=== PATIENT | female | born 1995 | race Caucasian/White ===

== ENCOUNTER → 2022-11-15 15:14 | Outpatient (CLI) | payer OTHER, SELFPAY ==
--- NOTE | ~2022-11-15 | US_ITS ---
EXAMINATION: US OB /maternal detail DATE: 11/15/2022 15:53 INDICATION: Second trimester anatomy scan TECHNIQUE: Multiple obstetric sonographic images performed. FINDINGS: There is a single living fetus in vertex presentation. The placenta is anterior and not low-lying wi th caudal margin 6.1 cm from the region of the internal cervical os. The cervix itself is poorly visu alized. Amniotic fluid volume is subjectively normal. heart rate of 145 beats per minute. The following anatomy was identified as normal: Ventricles, choroid plexus, falx and cava septum pellucidum Cerebellum and cisterna magna Nuchal fold Upper lip Spine Diaphragm Stomach Kidneys Bladder 3 vessel cord and cord insertion Bilateral upper and lower extremities including hands and feet The four-chamber heart view is normal. Left and right ventricular outflow tract views were not provid ed however cine imaging extending from the aortic arch to the base of the heart demonstrates normal a natomy of the great vessels. The following biometric data were obtained: BPD: 4.2 cm -> 18 weeks 4 days Head circumference: 16.0 cm -> 18 weeks 6 days Abdominal circumference: 12.9 cm -> 18 weeks 3 days Femur length: 2.7 cm -> 18 weeks 3 days These measurements are 2. Head circumference to abdominal circumference ratio: 1.24 (normal range 1.09-1.27). Estimated weight: 241 g (+/-) 36 g. or 8 oz. (+/-) 1 oz. IMPRESSION: 1. Single living fetus with vertex presentation with heart rate of 145 bpm. 2. Gestational age by ultrasound of 18 weeks 4 day(s) (+/-) 1 week 2 day(s) with ultrasound estimat ed date of delivery (JUAN) of 04/14/2023. Estimated weight is 38th percentile by Hadlock criteri a when 04/14/2023 is used as the JUAN. Please correlate with clinical information or earlier ultrasoun ds for most accurate JUAN. 3. Normal survey. Reviewed, dictated and finalized at location A. IMPRESSION: 1. Single living fetus with vertex presentation with heart rate of 145 b pm. 2. Gestational age by ultrasound of 18 weeks 4 day(s) (+/-) 1 week 2 day(s) w ith ultrasound estimated date of delivery (JUAN) of 04/14/2023. Estimated weight is 38th percentile by Hadlock criteria when 04/14/2023 is used as the ED D. Please correlate with clinical information or earlier ultrasounds for most a ccurate JUAN. 3. Normal survey.
== END ==
PROVIDERS: PCP Advanced Practice Midwife; Visit Provider Advanced Practice Midwife
DX: Z36.9 Encounter for antenatal screening, unspecified (principal); Z3A.18 18 weeks gestation of pregnancy
CPT/HCPCS: 76805

== ENCOUNTER → 2023-03-05 16:35 | Outpatient (CLI) | payer OTHER, SELFPAY ==
--- NOTE | ~2023-03-05 | US_ITS ---
EXAMINATION: US OB follow up DATE: 03/05/2023 16:57 INDICATION: Estimated size less than expected for estimated gestational age TECHNIQUE: Real-time ultrasound of the pelvis was performed. The interpreting radiologist was not pre sent for the study. COMPARISON: 11/23/2022 FINDINGS: There is a single living fetus in vertex presentation. The placenta is anterior. heart rate is 140 beats per minute (bpm). The amniotic fluid index is 17.1 cm, which is normal. The following biometric data were obtained: BPD: 8.6 cm -> 34 weeks 3 days Head circumference: 30.3 cm -> 33 weeks 4 days Abdominal circumference: 28.1 cm -> 32 weeks 1 days Femur length: 6.6 cm -> 33 weeks 6 days These measurements are concordant. Head circumference to abdominal circumference ratio: 1.08 (normal range 0.95-1.11). Estimated weight: 2097 g (+/-) 315 g or 4 lbs. 10 oz. (+/-) 11 oz. IMPRESSION: 1. Single living fetus in vertex presentation with heart rate of 140 bpm. 2. Normal amniotic fluid index of 17.1 cm. 3. Estimated weight is 14th percentile by Hadlock criteria when 04/14/2023 is used as the estim ated date of delivery (JUAN). Please correlate with clinical information or earlier ultrasounds for mo st accurate JUAN. Reviewed, dictated and finalized at location A. IMPRESSION: 1. Single living fetus in vertex presentation with heart rate of 140 bpm. 2. Normal amniotic fluid index of 17.1 cm. 3. Estimated weight is 14th percentile by Hadlock criteria when 3 is used as the estimated date of delivery (JUAN). Please correlate with clinic al information or earlier ultrasounds for most accurate JUAN.
== END ==
PROVIDERS: PCP Advanced Practice Midwife; Visit Provider Advanced Practice Midwife
DX: O36.5930 Maternal care for other known or suspected poor fetal growth, third trimester, not applicable or unspecified (principal); Z3A.00 Weeks of gestation of pregnancy not specified
CPT/HCPCS: 76816

== ENCOUNTER 2023-04-09 03:55 | Inpatient (IN) | payer OTHER, SELFPAY ==
[2023-04-09] VITALS (80 sets, daily range): BP systolic 80–213; BP diastolic 46–178; PULSE 61–105; RESP 16; TEMP 36.5–37.1; O2SAT 84–100; BMI 25.3
[2023-04-09] MEDS: LACTATED RINGERS 1,000 ML 125 ML IV CONT ×2 (04:25→05:03)
[2023-04-09] MEDS: AMPICILLIN 2 GM/NS 100 ML 2 GM/100 ML BAG IVPB (04:25)
[2023-04-09 04:27] LABS: Basophils Absolute Auto 0.1 K/mm3 (0.0-0.1); Basophils Percent Auto 0.4 % (0.2-1.2); Eosinophils Absolute Auto 0.2 K/mm3 (0-0.3); Hemoglobin 11.2 g/dL (12.0-15.0); Immature Granulocyte Absolute 0.25 K/mm3 (0.00-0.031); Immature Granulocyte Percent A 1.6 % (0-0.5); Lymphocytes Absolute Auto 1.95 K/mm3 (0.9-3.2); Lymphocytes Percent Auto 12.1 % (18.3-44.2); Mean Corpuscular Hemoglobin 28.8 pg (26-34); Mean Platelet Volume 10.8 fl (7.4-10.4); Monocytes Absolute Auto 1.5 K/mm3 (0.1-0.6); Monocytes Percent Auto 9.3 % (2.6-8.5); Neutrophils Absolute Auto 12.2 K/mm3 (1.3-6.7); Neutrophils Percent Auto 75.6 % (45.5-73.1); Platelet Count Result 261 k/mm3 (150-375); Red Blood Count 3.89 M/mm3 (4.2-5.4); Red Cell Distribution Width 13.2 % (11.5-14.5); White Blood Count 16.1 K/mm3 (4.5-10.0)
--- NOTE | 2023-04-09 04:55 | P.PNAN_ITS ---
Anes - Eval Pre Procedure Procedure: labor epidural Date/Time: 04/09/23 04:55 Surgeon: yan Preop Diagnosis: pain during labor Pre Op Diagnosis: LABOR Patient Data Age: 28 Gender: F Height: 1.7 m Weight: 73.5 kg Last Vital Signs Pulse 82 04/09/23 04:53 BP 101/52 L 04/09/23 04:53 Pulse Ox 99 04/09/23 04:50 O2 Del Method Room Air 04/09/23 04:54 Allergies Allergy/AdvReac Type Severity Reaction Status Date / Time No Known Allergies Allergy Verified 03/21/23 13:13 Home Medications Medication Instructions Recorded Confirmed Type vits no.126-ferrous fum 1 tablet PO DAILY 03/21/23 03/21/23 History 28 mg iron-folic acid 800 mcg tablet (Classic ) Laboratory Tests 04/09/23 04:17 WBC 16.1 H K/mm3 (4.5-10.0) RBC 3.89 L M/mm3 (4.2-5.4) Hgb 11.2 L g/dL (12.0-15.0) Hct 35.0 L % (37.0-47.0) MCV 90.0 fl (80-100) MCH 28.8 pg (26-34) MCHC 32.0 g/dl (32-36) RDW 13.2 % (11.5-14.5) Plt Count 261 k/mm3 (150-375) MPV 10.8 H fl (7.4-10.4) Immature Gran % (Auto) 1.6 H % (0-0.5) Neut % (Auto) 75.6 H % (45.5-73.1) Lymph % (Auto) 12.1 L % (18.3-44.2) [place] % (Auto) 9.3 H % (2.6-8.5) Eos % (Auto) 1.0 % (0-4.4) Baso % (Auto) 0.4 % (0.2-1.2) Lymph # (Auto) 1.95 K/mm3 (0.9-3.2) [place] # (Auto) 1.5 H K/mm3 (0.1-0.6) Eos # (Auto) 0.2 K/mm3 (0-0.3) Baso # (Auto) 0.1 K/mm3 (0.0-0.1) Abs Immat Gran (auto) 0.25 H K/mm3 (0.00-0.031) Absolute Neuts (auto) 12.2 H K/mm3 (1.3-6.7) Absolute Nucleated RBC 0.0 K/mm3 (0.0-0.012) Nucleated RBC % 0.0 % (0.0-0.2) RPR Pending Patient hx anesthesia problems: none Family hx anesthesia problems: none Results Review: All pre-operative results and documents have been reviewed as part of the pre- operative evaluation. [facility] Past Medical History Medical History (Updated 04/09/23 @ 04:56 by Laura Mcdowell CRNA) Normal IUP (intrauterine ) on ultrasound Family History Family History (Updated 03/21/23 @ 13:44 by Maura Shafer RN) Grandparent Hypertension Social History Social History Smoking status: Never smoker Second hand tobacco smoke exposure: No Substance use: never Lack of Transportation: No Lack of Food: Never True Current Housing: I Have Housing Concerned About Future Housing: No Difficulty Paying Gas/Electric Bills: No Difficulty Paying for Meds: No Currently Unemployed: No Education: Bachelor's Degree Difficulty w/ Childcare or Family Care: No Spiritual care concerns: No Exam Day of Procedure 04/09/23 04:55
--- NOTE | 2023-04-09 07:28 | WPDOBADMIT ---
Obstetrics - Admit Note Admission Note: record reviewed. No pertinent additions to the history and/or any subsequent changes in the physical findings that are not consistent with the expected course of the were found. Additions to the history and/or subsequent changes in the physical findings follow. Admitted in spontaneous labor with clear ROM.
--- NOTE | 2023-04-09 07:29 | PM.OBPNLAB ---
Pain Control Date/time seen: 04/09/23 07:25 Pain control: tolerating well and epidural Comments: Feeling pelvic pressure. Pelvic Exam Dilation (cm): 10 Comments: per RN exam Contractions Monitor mode: External Contraction pattern: Regular Contraction intensity: Strong/Firm Status Comments: Moderate variability, baseline 150 to 155 a times. Early decelerations Assessment and Plan Assessment: active labor Plan: continuous present management Comments: Pt feeling pelvic pressure. Will begin pushing with contractions.
--- NOTE | 2023-04-09 07:33 | PM.OBPRVD ---
OB - Delivery Note Procedure Delivery date: 04/09/23 Procedure: Events: Positive Group B Strep (GBS) Induction method: None Delivery monitor: External FHT and External Uterine Route of delivery: Episiotomy description: None Laceration Description: Vaginal (1st) and Superficial (periurethral bilateral-no repair. ) Delivery repair: vicryl Specimen: No Quantitative Blood Loss (ml): 75 Anesthesia type: Epidural Disposition: Floor Complications: Shoulder Dystocia x 65 seconds Narrative: Patient arrived in spontaneous labor after spontaneous rupture membranes that were clear. She progressed quickly to complete dilation and pushed well with contractions. She brought the head to compare crown. After the delivery of the head there was a lack of restitution observed. With the next push there was no further descent of the anterior shoulder. A shoulder dystocia was identified. Rosetta position was initiated and there was no further descent of the anterior arm. Suprapubic pressure was applied towards the maternal left hip and there was minimal descent of the anterior shoulder. After 30 seconds, CNM placed a hand posteriorly and easily removed the hand and arm. This was identified as the interior ( left) arm. with the next push she delivered the posterior ( right) arm. the remainder of the was delivered and placed on the maternal abdomen for assessment by the pediatric team. After 1 minute of life the cord was doubly clamped and cut. Cord blood, cord gases, and cord gases were obtained. there is spontaneous delivery of the placenta. A first-degree vaginal laceration was repaired in the usual fashion. There was excellent hemostasis and uterine tone. All delivery counts correct. Mother and baby skin to skin in the delivery room. Total time of the shoulders dystocia was 65 seconds. [place] Baby Date of : 04/09/23 Time of : 08:05 Weeks of gestation at delivery: 39 Infant gender: Female Weight (pounds): 0 (unavailable at the time of this note) presentation: vertex position: Left Occiput Anterior Placenta delivery description: Spontaneous Cord Vessel Description: 3 Vessels and Delayed Cord Clamping (for one minute) score one minute: 8 score five minutes: 9
[2023-04-09] MEDS: OXYTOCIN 30 UNITS/NS 500 ML 30 UNITS/500 ML BAG 999 UNITS IV CONT (08:05)
--- NOTE | 2023-04-09 08:30 | PM.OBDSVD ---
DS: Admitting Diagnosis Discharge Date 06/10/2023 Admitting Diagnosis 28 y.o. at 39 weeks 2 days Spontaneous ROM GBS+ Hx Hematuria DS: Discharge Diagnosis Discharge Diagnosis (1) (normal spontaneous vaginal delivery): Code(s): O80 - Encounter for full-term uncomplicated delivery Status: Acute (2) Patient is a currently breast-feeding mother: Code(s): Z39.1 - Encounter for care and examination of lactating mother Status: Acute OB - DS: Summary Hospital Course Hospital Course: Uncomplicated OB Procedures : Ultrasound OB Procedures Intrapartum: Spontaneous Vag Delivery (Shoulder dystocia) and GBS prophylaxis OB Procedures: : None Peripartum Data Delivery Method: Natural Vaginal Laceration Description: Vaginal - 1st Degree and Superficial (bilateral periurethral) Episiotomy description: None complications: none Status at Discharge Functional status at discharge: independent ambulation Overall status at discharge: patient is progressing back to baseline Time Spent with Patient Time attestation: Total time spent providing and/or coordinating discharge services: Exam Narrative: Alert and oriented. Mood is pleasant and cooperative. Perineum with slight/minimal edema. Fundus firm and below umbilicus. Lochia small to scant. Const: General: cooperative, healthy appearing, no acute distress and alert Orientation/consciousness: patient oriented x3 Limitations: no limitations Resp: Effort & Inspection: normal respiratory effort and able to speak in complete sentences Auscultation: clear to auscultation bilaterally Cardio: Rate: regular rate GI: Inspection: normal to inspection Auscultation: normal bowel sounds : General: Yes bladder normal to palpation Bimanual exam- vagina & uterus: bladder normal to palpation OB/external & speculum: vaginal bleeding (scant) Other: Fundus firm and below U Skin: General skin exam: normal color and no rashes or lesions noted Neuro: General: patient oriented x3 and moves all extremities Cognition (Neuro): normal cognition Extrem: General: normal to inspection and no calf tenderness Psych: Appearance: grossly normal Mental Status: mental status grossly normal Affect: normal affect Thought process: Normal thought process present DS: Data Data Completed and Pending Labs on day of discharge: Labs from last 24 hours 04/09/23 04:17 WBC 16.1 H RBC 3.89 L Hgb 11.2 L Hct 35.0 L MCV 90.0 MCH 28.8 MCHC 32.0 RDW 13.2 Plt Count 261 MPV 10.8 H Immature Gran % (Auto) 1.6 H Neut % (Auto) 75.6 H Lymph % (Auto) 12.1 L [place] % (Auto) 9.3 H Eos % (Auto) 1.0 Baso % (Auto) 0.4 Lymph # (Auto) 1.95 [place] # (Auto) 1.5 H Eos # (Auto) 0.2 Baso # (Auto) 0.1 Abs Immat Gran (auto) 0.25 H Absolute Neuts (auto) 12.2 H Absolute Nucleated RBC 0.0 Nucleated RBC % 0.0 RPR Pending Blood Type O Positive Antibody Screen Negative Discharge Plan Discharge Attending physician on discharge: Suellen Hagan Discharging Clinician: Meseret Leigh Anticipated Discharge Date/Time: 04/11/23 10:00 Patient Disposition: Home, Self-Care Activity: may shower Diet: as tolerated Wound Care Instructions: follow printed instructions Discharge Instructions: Continue taking your vitamin and any other supplements as previously directed (Examples: Iron, Vitamin D). You may take Tylenol 1000mg over the counter every 6 hours as needed for pain. Do not exceed 4000mg of Tylenol daily. You may continue using tucks pads and dermoplast spray if needed for a few more days. Patient Instructions: Antibiotic Form Stand Alone Forms: General Discharge Information Follow-up/Referrals: Meseret Leigh, SULEMAM [Certified Nurse Rooming House Inspector] - (6 week exam) Discharge Medications: New norethindrone (contraceptive) 0.35 mg tablet 0.35 mg PO DAILY Qty: 84 6RF ibupr
[2023-04-09] MEDS: OXYTOCIN 30 UNITS/NS 500 ML 30 UNITS/500 ML BAG 125 UNITS IV CONT (08:38)
[2023-04-09] MEDS: WITCH HAZEL 40 PADS 1 PAD TOPICAL (10:43)
[2023-04-09] MEDS: BENZOCAINE 20% AER SPR (*SP) 56 GM CAN 1 SPRAY TOPICAL (10:43)
[2023-04-09 10:49] LABS: Rapid Plasma Reagin Non-Reactive (NonReactive)
--- NOTE | 2023-04-09 11:00 | OBPPTRN ---
1045-Patient transferred to post room #282 via wheelchair. Support person present. Oriented to unit, room, information board, rooming in, admission packet and security measures. Patient verbalizes understanding.
[2023-04-09] MEDS: DOCUSATE SODIUM 100 MG CAPSULE PO (16:58)
[2023-04-09] MEDS: IBUPROFEN 600 MG TABLET PO (16:59)
[2023-04-10 04:47] LABS: Hematocrit 33.3 % (37.0-47.0); Hemoglobin 10.6 g/dL (12.0-15.0)
[2023-04-10 07:35] VITALS: BP 121/74; PULSE 60; RESP 16; TEMP 36.8; O2SAT 98
[2023-04-10] MEDS: MULTIVIT/MIN/PREN/FOL AC/IRON TABLET 1 TAB PO (08:15)
[2023-04-10] MEDS: DOCUSATE SODIUM 100 MG CAPSULE PO ×2 (08:16→16:37)
--- NOTE | 2023-04-10 09:10 | WPDANESPN ---
Anes - Prog Note Post-Op Date/Time: 04/10/23 09:10 Cardiovascular status: normal Respiratory status: normal Airway patency: baseline Mental status: baseline Post-Op hydration status: normal Vital Signs: Last Vital Signs Temp 98.2 F 04/10/23 07:35 Pulse 60 04/10/23 07:35 Resp 16 04/10/23 07:35 BP 121/74 04/10/23 07:35 Pulse Ox 98 04/10/23 07:35 O2 Del Method Room Air 04/09/23 11:30 Pain Score (VAS): 0 Laboratory Tests 04/10/23 04:37 04/09/23 04/10/23 04:17 04:37 Hgb 10.6 L Hct 33.3 L RPR Non-reactive Post-procedural complaints: none Patient Feedback: Patient satisfied with anesthetic care.
--- NOTE | 2023-04-10 09:10 | WPDANLDPN2 ---
Anes-Prog Note L&D Date/Time: 04/10/23 09:10 Neuro status: Neuro function grossly intact. Cardiovascular status: normal Respiratory status: normal Airway patency: baseline Mental status: baseline Post-Op hydration status: normal Vital Signs: Last Vital Signs Temp 98.2 F 04/10/23 07:35 Pulse 60 04/10/23 07:35 Resp 16 04/10/23 07:35 BP 121/74 04/10/23 07:35 Pulse Ox 98 04/10/23 07:35 O2 Del Method Room Air 04/09/23 11:30 Pain score (VAS): 0 Post-procedural complaints: none Patient feedback: Patient satisfied with anesthetic care.
--- NOTE | 2023-04-10 09:12 | WPDANLDPN2 ---
Anes-Prog Note L&D Date/Time: 04/10/23 09:12 Comfortable throughout: labor and delivery Neuraxial method: epidural Epidural/Spinal procedure site: tender Neuro status: Neuro function grossly intact. Cardiovascular status: normal Respiratory status: normal Airway patency: baseline Mental status: baseline Post-Op hydration status: normal Vital Signs: Last Vital Signs Temp 98.2 F 04/10/23 07:35 Pulse 60 04/10/23 07:35 Resp 16 04/10/23 07:35 BP 121/74 04/10/23 07:35 Pulse Ox 98 04/10/23 07:35 O2 Del Method Room Air 04/09/23 11:30 Pain score (VAS): 0 Post-procedural complaints: none Patient feedback: Patient satisfied with anesthetic care.
--- NOTE | 2023-04-10 17:39 | PM.OBPNVD ---
OB - PN: Subj Subjective Date/time seen: 04/10/23 17:39 Patient comments: no complaints and pain well controlled baby status: doing well OB - PN: Obj Data Labs 04/10/23 04:37 Labs: Laboratory Results - last 24 hr 04/10/23 04:37 Hgb 10.6 L Hct 33.3 L OB - PN A/P Plan day: 1 Plan: routine care, discharge home (requests dc home) and follow up 6 weeks Time Spent With Patient Time: Total time spent is greater than 50% in coordination of care (as documented) at patient's floor/unit and/or counseling patient: Exam : Bimanual exam- vagina & uterus: other (Uterus firm, nt @U)
[2023-04-10 18:55] VITALS: BP 115/68; PULSE 65; RESP 16; TEMP 36.3
--- NOTE | 2023-04-11 07:55 | PM.OBPNVD ---
OB - PN: Subj Subjective Date/time seen: 04/11/23 07:45 Interval history: PPD 2 from with shoulder dystocia. Doing very well. Urinating without difficulty. Denies passing any large clots. Denies dizziness with ambulating. Tolerating po food and fluids. Bonding with infant. Reports latching well at breast. Patient comments: no complaints and pain well controlled baby status: doing well and nursing well feeding status: exclusively breast feeding OB - PN: Obj Data Labs 04/10/23 04:37 OB - PN A/P Assessment and Plan (1) (normal spontaneous vaginal delivery): Code(s): O80 - Encounter for full-term uncomplicated delivery Status: Acute (2) Patient is a currently breast-feeding mother: Code(s): Z39.1 - Encounter for care and examination of lactating mother Status: Acute Plan day: 2 Plan: discharge home Time Spent With Patient Time: Total time spent is greater than 50% in coordination of care (as documented) at patient's floor/unit and/or counseling patient: Review of Systems Review of Systems: All systems reviewed & are unremarkable except as noted in HPI and below Exam Narrative: Alert and oriented. Mood is pleasant and cooperative. Perineum with slight/minimal edema. Fundus firm and below umbilicus. Lochia small to scant. Const: General: cooperative, healthy appearing, no acute distress and alert Orientation/consciousness: patient oriented x3 Limitations: no limitations Resp: Effort & Inspection: normal respiratory effort and able to speak in complete sentences Auscultation: clear to auscultation bilaterally Cardio: Rate: regular rate GI: Inspection: normal to inspection Auscultation: normal bowel sounds : General: Yes bladder normal to palpation Bimanual exam- vagina & uterus: bladder normal to palpation OB/external & speculum: vaginal bleeding (scant) Other: Fundus firm and below U Skin: General skin exam: normal color and no rashes or lesions noted Neuro: General: patient oriented x3 and moves all extremities Cognition (Neuro): normal cognition Extrem: General: normal to inspection and no calf tenderness Psych: Appearance: grossly normal Mental Status: mental status grossly normal Affect: normal affect Thought process: Normal thought process present
[2023-04-11 08:05] VITALS: BP 112/69; PULSE 58; RESP 16; TEMP 36.9; O2SAT 99
[2023-04-11] MEDS: DOCUSATE SODIUM 100 MG CAPSULE PO (08:12)
[2023-04-11] MEDS: MULTIVIT/MIN/PREN/FOL AC/IRON TABLET 1 TAB PO (08:12)
--- NOTE | 2023-04-11 10:00 | PC.NURSE ---
Patient viewed the discharge video Mother & Baby Care, The First Two Weeks . Patient was given the opportunity and encouraged to ask questions. Patient verbalized understanding of information shared and has been given the mother/baby guide for home reference.
--- NOTE | 2023-04-11 10:57 | PC.NURSE ---
[id number] 04/10/23 Consulted with patient to assess for needs. Mother states is going well with some mild discomfort. Mother is receptive to a assessment since it has been 3 hours from the start of the last . Mother works well with her with encouragement and education. Encouraged understanding of the benefits of skin to skin (demonstrating unwrapping infant and placing upright on her chest), stimulating with massage touch, changing positions to encourage wakefulness, how to watch for early feeding cues, responsive feeding, feeding on demand (aiming for 8-12 times in 24 hours, about every 2-3 hours), milk production, building/maintaining a milk supply, duration of feeding, signs of adequate intake/output and how to record on the feeding sheet. Reviewed positioning and ear, shoulder, hip alignment, supporting the breast to facilitate a deep latch, asymmetrical latch (off-center), leading with the chin with a big, open, wide gape and body close to mother. latched optimally to both breast in cross cradle/football position. Education given to mother of how to visualize suck/swallow ratios and listen for drinking at the breast. was able to maintain latch without discomfort to mother after practicing the sandwich hold and latching deeper to the breast. Nipple care reviewed with optimal latch, good positioning and detaching from the breast. Reviewed good handwashing when or touching the breast/nipples to prevent infection. Resources used to facilitate learning were used with the tool. Mother voiced understanding of skin to skin, stimulating with massage touch, responsive feedings, hand expressed colostrum, talking to to encourage on demand or if it has been 2 -2.5 hours since the start of the last , to call if infant does not latch, or if there is discomfort with . Resources provided for inpatient/outpatient with feeding sheet, name written on the communication board and the mom/baby guide. Parents voiced understanding of information, demonstrated learning and will call if there is a request for assistance. Reported to the Primary RN. 04/11/23 Primary RN reported mother did not need to see and is going well with mild discomfort at first, then subsides with no pain.
[2023-04-12 11:35] VITALS: BP 110/74; PULSE 63; RESP 18; TEMP 37.1; O2SAT 98
== END 2023-04-11 11:00 | disposition home or self-care (01) | DRG 807 ==
LOC: ANHLDR 08:34 → ANHOB2 10:48
PROVIDERS: Advanced Practice Midwife; Admitting Provider Obstetrics & Gynecology Gynecology; Visit Provider Obstetrics & Gynecology Gynecology
DX: O99.824 Streptococcus B carrier state complicating childbirth (principal); Z37.0 Single live birth; Z3A.39 39 weeks gestation of pregnancy; O70.0 First degree perineal laceration during delivery; O71.82 Other specified trauma to perineum and vulva; O66.0 Obstructed labor due to shoulder dystocia
CPT/HCPCS: 36415; 84112; 85014; 85018; 85025; 86592; 86850; 86900; 86901; A9270; J0290; J2590; J2795; J7120

== ENCOUNTER 2023-09-01 11:43 | Emergency (ER) | payer OTHER, SELFPAY ==
--- NOTE | 2023-09-01 11:47 | ED.GENADULT ---
HPI - General Adult General Chief complaint: Ear Stated complaint: Ear Pain Source: patient, RN notes reviewed and old records reviewed Mode of arrival: ambulatory Limitations: no limitations History of Present Illness HPI narrative: 28-year-old female [facility] to [facility] complaint sinus congestion for about 6 or 7 days. Patient states now is having bilateral ear fullness with decreased hearing. Patient denies ear pain. Patient is . Related Data Allergies Allergy/AdvReac Type Severity Reaction Status Date / Time No Known Allergies Allergy Verified 09/01/23 11:53 Review of Systems Constitutional: Constitutional: Reports no additional constitutional complaints, Denies body ache(s), Denies chills, Denies fatigue, Denies fever(s) and Denies headache(s) Eyes: Eyes: Reports no additional eye complaints and Denies blurry vision ENT: Reports system reviewed and no additional complaints, except as documented, Denies vertigo, Denies dizziness, Denies ear discharge, Reports otalgia, Denies facial pain, Denies headache(s), Reports nasal congestion, Denies nasal discharge, Denies sinus pain, Denies sinus pressure and Denies sore throat Cardiovascular: Cardiovascular: Reports no additional cardiovascular complaints, Denies chest pain, Denies chest pain at rest, Denies rapid heart rate and Denies dyspnea Respiratory: Respiratory: Reports no additional respiratory complaints, Denies chest congestion, Denies cough, Denies pain on inspiration, Denies pain with cough and Denies dyspnea Gastrointestinal: Gastrointestinal: Denies abdominal pain, Denies diarrhea, Denies nausea and Denies vomiting Integumentary/Breasts: Skin/Breast: Denies rash Neurologic: Reports system reviewed and no additional complaints, except as documented, Denies vertigo, Denies dizziness and Denies headache(s) Endocrine: Endocrine: Denies fatigue [facility] Past Medical History Medical History Normal IUP (intrauterine ) on ultrasound Family History Family History Grandparent Hypertension Social History Social History Smoking status: Never smoker Second hand tobacco smoke exposure: No Substance use: never Lack of Transportation: No Lack of Food: Never True Current Housing: I Have Housing Concerned About Future Housing: No Difficulty Paying Gas/Electric Bills: No Difficulty Paying for Meds: No Currently Unemployed: No Education: Bachelor's Degree Difficulty w/ Childcare or Family Care: No Spiritual care concerns: No Comments At the time of my signature, I reviewed and agree with the nursing past medical, surgical, social, and family history. There is no relevant family history pertinent to the patient complaint. Exam Const: General: cooperative, healthy appearing, no acute distress and well nourished Nutritional Appearance: well nourished Orientation/consciousness: patient oriented x3 Limitations: no limitations HENMT: Head: normal to inspection and normocephalic Ears: external ears normal, EAC's normal, mastoids normal and TM abnormal wth effusion serous bilateral Face/Nose/Sinus: normal facial exam Face and sinus: normal facial exam Mouth: Yes Normal oral and palatal mucosa present, Yes oropharynx normal and Yes moist mucous membranes Throat: tonsils normal, uvula midline and no uvular edema Eyes: General: appearance normal, both eyes and all related structures Sclera: sclerae normal Pupils: Equal, round and reactive pupils present Resp: Effort & Inspection: normal respiratory effort, able to speak in complete sentences, no audible wheezes, no cough, no respiratory distress and no retractions Auscultation: clear to auscultation bilaterally, no crackles, no rales, no rhonchi and no wheezes Cardio: Rate: regular rate Rhythm: re
[2023-09-01 11:48] VITALS: BP 101/62; PULSE 64; RESP 16; TEMP 36.8; O2SAT 100
== END 2023-09-01 12:06 | disposition home or self-care (01) ==
PROVIDERS: Emergency Provider Registered Nurse
DX: H65.03 Acute serous otitis media, bilateral (principal)
CPT/HCPCS: 99213; G0463